=== PATIENT | female | born 1975 | race Caucasian/White ===

== ENCOUNTER 2017-10-29 07:00 | Inpatient (IN) | payer OTHER ==
[~2017-10-29] VITALS: Ht 170.2 cm; Wt 61.2 kg
[2017-10-29] MEDS ORDERED: SYNTHROID137 MCG PO (08:14)
[2017-10-29] MEDS ORDERED: ZOLOF PO (08:20)
== END 2017-11-08 13:14 | DRG 743 ==
LOC: O/R 11-05 05:35 → OB/GYN 11-05 07:00
PROVIDERS: Obstetrics & Gynecology Maternal & Fetal Medicine
PROC: 0UT90ZL Resection of Uterus, Supracervical, Open Approach (ICD-10-PCS; principal; 2017-11-05 07:00)
DX: D25.1 Intramural leiomyoma of uterus (principal)

== ENCOUNTER 2019-04-28 22:19 | Emergency (ER) | payer OTHER ==
[~2019-04-28] VITALS: Ht 170.2 cm; Wt 63.0 kg
[~2019-04-28 22:19] MED LIST: SYNTHROID137 MCG PO; ZOLOF PO
[2019-04-28] MEDS ORDERED: SYNTHROID150 MCG (22:41)
[2019-04-29] MEDS ORDERED: LEVAQUIN500 MG PO (08:08)
== END 2019-04-29 | disposition home or self-care (01) ==
LOC: ER 22:19
DX: L98.499 Non-pressure chronic ulcer of skin of other sites with unspecified severity (principal); R50.9 Fever, unspecified

== ENCOUNTER 2019-05-13 15:13 | Outpatient (CLI) | payer OTHER ==
[~2019-05-13 15:13] MED LIST changes: +LEVAQUIN500 MG PO; +SYNTHROID150 MCG
== END 2019-05-13 18:00 | disposition home or self-care (01) ==
LOC: LAB 15:13
DX: K65.1 Peritoneal abscess (principal)

== ENCOUNTER 2024-06-11 10:19 | Emergency (ER) | payer OTHER ==
[~2024-06-11] VITALS: Ht 167.6 cm; Wt 68.0 kg
[2024-06-11] MEDS ORDERED: CLONAZEPAM0.5 MG (10:44)
[2024-06-11] MEDS ORDERED: ZOLOFT100 MG (10:44)
[2024-06-11] MEDS ORDERED: KETOROLAC TROMETHAMINE 60 MG VIAL IM STA (12:36)
[2024-06-11] MEDS ORDERED: KETOROLAC TROMETHAMINE 60 MG VIAL IM ONE (12:59)
== END 2024-06-11 14:41 | disposition home or self-care (01) ==
LOC: ER 10:20
DX: S93.401A Sprain of unspecified ligament of right ankle, initial encounter (principal); S93.402A Sprain of unspecified ligament of left ankle, initial encounter; W18.39XA Other fall on same level, initial encounter; Y93.89 Activity, other specified; Y92.098 Other place in other non-institutional residence as the place of occurrence of the external cause; Y99.9 Unspecified external cause status; Z88.2 Allergy status to sulfonamides; Z91.018 Allergy to other foods